=== PATIENT | male | born 2000 | race Caucasian/White ===

== ENCOUNTER 2025-04-27 21:19 | Emergency (ER) | payer BC, SELFPAY ==
[2025-04-27] VITALS (9 sets, daily range): BP systolic 103–139; BP diastolic 67–109; PULSE 68–84; RESP 18–28; TEMP 37.1; O2SAT 96–100; BMI 32.2
--- NOTE | 2025-04-27 21:53 | EX.ED.DYSGE1 ---
HPI History of Present Illness Chief Complaint: Palpitations Informant: patient Onset/Context/Timing Onset: Today Context: Sudden Onset Timing: Intermittent and Lasts (Approximately 1 hour) Quality: Racing Location: Chest Worsened by: Nothing Relieved by: Nothing Narrative Narrative: Patient presents with palpitations that began today. Patient states he felt his heart racing. Patient states this lasted for approximately 1 hour. Patient states that this occurred while he was at work. Patient states nothing makes it worse and nothing makes it better. Patient states he did break out into a mild sweat. Patient denies any pain in his chest. Patient denies any shortness of breath or cough. Patient denies any nausea or vomiting. Patient does admit to drinking some energy drinks occasionally. Patient also admits to occasional alcohol use and occasional marijuana use. PFSH PFS Medical History Marijuana use Medical History no medical history Home Medications ?Medication ?Instructions ?Recorded ?Last Taken ?Type NK 04/27/25 Unknown History Allergy/AdvReac Type Severity Reaction Status Date / Time No Known Allergies Allergy Verified 04/27/25 21:22 Social History (Updated 04/27/25 @ 22:[address] Carson Page, DO) alcohol intake: current alcohol intake frequency: a few times a month substance use type: marijuana ROS ROS ED Constitutional Constitutional ED: Reports sweats; Denies chills or fever(s) Eyes Eyes: Denies blurry vision or change in vision ENT ENT ED: Denies rhinorrhea or sore throat Cardiovascular Cardiovascular: Reports palpitations; Denies chest pain Respiratory/Chest Respiratory/Chest: Denies cough or dyspnea Gastrointestinal Gastrointestinal: Denies nausea or vomiting Genitourinary Genitourinary ED: Denies dysuria or hematuria Musculoskeletal Musculoskeletal: Denies back pain or neck pain Integumentary Denies abscess or rash Neurologic Neurologic: Denies headache(s) or weakness Allergic/Immunologic Allergic/Immunologic ED: Denies mouth swelling or urticaria EXAM Physical Exam Const Vital Signs: 04/27/25 21:20 04/27/25 21:42 04/27/25 21:54 Temperature 98.8 F Temperature Source Temporal Pulse Rate 84 Respiratory Rate 18 Respiratory Effort Normal Blood Pressure 139/89 H Blood Pressure Mean 105 Pulse Ox 100 Oxygen Delivery Method Room Air Room Air 04/27/25 21:55 04/27/25 22:00 04/27/25 22:03 Temperature Temperature Source Pulse Rate 75 81 Respiratory Rate 23 H 28 H Respiratory Effort Blood Pressure 128/109 H Blood Pressure Mean 116 Pulse Ox 98 97 Oxygen Delivery Method 04/27/25 22:15 04/27/25 22:30 04/27/25 22:45 Temperature Temperature Source Pulse Rate 68 71 81 Respiratory Rate 20 H 22 H 24 H Respiratory Effort Blood Pressure 132/67 H 132/88 H 103/85 H Blood Pressure Mean 86 102 93 Pulse Ox 97 99 98 Oxygen Delivery Method Room Air 04/27/25 23:00 04/27/25 23:15 Temperature Temperature Source Pulse Rate 71 74 Respiratory Rate 21 H 18 Respiratory Effort Blood Pressure 120/79 129/90 H Blood Pressure Mean 94 100 Pulse Ox 96 96 Oxygen Delivery Method Room Air Positive well nourished and well developed Constitutional Narrative: BMI is 32.3. General Appearance ED: well developed and NAD HEENT Reports moist mucous membranes Neck supple and no JVD Resp normal respiratory effort and clear to auscultation bilaterally Cardio regular rate and regular rhythm GI non-tender and non-distended Palpation: soft Extremity normal to inspection General Extremety ED: Negative for edema or tenderness General Extremity: Negative for edema Neuro oriented x3, CN's II-XII intact bilaterally and no sensory deficits noted Sensorium / Orientation: alert Motor Exam: strength 5/5 throughout Psych mental status grossly normal MDM MDM MDM Narrative Medical decision making narrative: Differential diagnosis includes cardiac dysrhythmia, cardiac ischemia, pneumonia, bronchitis, electrolyte abnormality, and anxiety. EKG will be obtained to assess for cardiac dysrhythmia and cardiac ischemia. Chest x-ray will be obtained to assess for pneumonia or bronchitis. CBC will be obtained to assess for leukocytosis and anemia. Basic metabolic profile will be obtained to assess for electrolyte abnormality and renal function. High-sensitivity troponin will be obtained to assess for cardiac ischemia. History & Record Review Additional record(s) reviewed:: No prior records Lab Data Attestation: I reviewed the patient's lab results. Lab results narrative: CBC was reviewed. There is a mild leukocytosis of 13.5. The remainder is within normal limits. Basic metabolic profile was reviewed and was in normal limits. High-sensitivity troponin was reviewed and was less than 6. 2-hour repeat high-sensitivity troponin was reviewed and normal at 15. Labs: Laboratory Results - last 24 hr 04/27/25 04/27/25 21:40 23:40 WBC 13.5 H RBC 4.84 Hgb 14.2 Hct 41.7 MCV 86.2 MCH 29.3 MCHC 34.1 RDW Std Deviation 39.2 RDW Coeff of Neelima 12.3 Plt Count 268 MPV 9.8 Immature Gran % (Auto) 0.400 Neut % (Auto) 77.2 H Lymph % (Auto) 16.1 L Bond % (Auto) 5.2 Eos % (Auto) 0.7 Baso % (Auto) 0.4 Absolute Neuts (auto) 10.5 H Absolute Lymphs (auto) 2.18 Nucleated RBC % 0 Sodium 140 Potassium 3.8 Chloride 103 Carbon Dioxide 24.6 Anion Gap 12 BUN 11 Creatinine 0.74 Estim Creat Clear Calc 178.64 Est GFR (MDRD) Non-Af 130 BUN/Creatinine Ratio 14.7 Glucose 96 Calcium 9.6 Troponin T High Sens < 6 Troponin T Hi Sens 2 Hr 15 Radiography Chest X-Ray - ED: 2 View, Read by ED Physician, Read by Radiologist and No Acute Disease Diagnostic Testing: Clinical Impression(s) from Imaging Studies Chest X-Ray 04/27/25 21:58 IMPRESSION: NO ACUTE FINDINGS. Reading Location: [address] [place] and lateral chest x-ray was obtained. There are 2 views. On my independent interpretation, lung schuster are clear. There is normal cardiac silhouette. Bony thorax is normal. There is no acute process noted. Radiologist also interpreted the x-ray and agrees. EKG Initial EKG: Attestation: I personally reviewed and interpreted this EKG as follows: Interpretation: Sinus Rhythm (74) and No Acute Injury Pattern Comments: EKG was obtained. On my independent interpretation, it showed a normal sinus rhythm with a rate of 74. NC interval, QRS interval, and QTc intervals were all normal. [place] was normal. There are no acute ST or T wave changes. Prior EKG tracings: not available for review Prior: No Prior Treatment and Re-Evaluation :: Patient was given aspirin. Patient was feeling better on reevaluation. Patient was advised of his findings. Symptoms symptoms started approximately 1 to 2 hours prior to arrival, mild we will repeat the 2-hour troponin. Since this is normal, patient could be discharged home safely. Patient was instructed to follow-up with his primary care physician in 5 to 7 days. Patient was instructed return if worse in any way. Patient understood and was agreeable with plan. All questions were answered. Discharge Plan Triage Chief Complaint: Palpitations ED Provider: Carson Page Dx/Rx/DC Orders Clinical Impression: Palpitations, Marijuana use Instructions: ED Heart Palpitations Prescriptions: No Action NK Primary Care Provider: Care Physician,No Primary Referrals: NOT,DEFINED [Non-Staff, None] - 5-7 Days Activity Restrictions/Additional Instructions: The palpitations could be a result of the energy drinks or [id number] medications. Please refrain from using these. Print Language: Spanish Disposition Disposition: Home, Self Care
--- NOTE | 2025-04-27 21:58 | RAD_ITS ---
PROCEDURE: CHEST PA AND LATERAL 04/27/2025 REASON FOR EXAM: CHEST PAIN TECHNIQUE: Procedure Code: RADCXR Modality: DX Procedure: CHEST PA AND LATERAL FINDINGS: The heart is normal in size. The lungs are clear. No acute osseous abnormalities. RAD/Chest PA and Lateral IMPRESSION: NO ACUTE FINDINGS. Reading Location: [id number]
[2025-04-27 22:13] LABS: Hematocrit 41.7 % (40-54); Hemoglobin 14.2 g/dL (13.0-16.5); Immature Granulocytes Count 0.050 X10^3/uL (0.0-0.0); Mean Corp Hgb Conc 34.1 g/dL (32-36); Mean Corpuscular Volume 86.2 fL (80-94); Mean Platelet Vol. 9.8 fl (6.2-12.0); NRBC Flagged by Analyzer 0 % (0-5); Platelet Count 268 K/mm3 (150-450); RBC Distribution Width CV 12.3 % (11.6-14.6); RBC Distribution Width SD 39.2 fl (35.1-43.9); Red Blood Count 4.84 M/mm3 (4.6-6.2); White Blood Count 13.5 K/mm3 (4.4-11.0)
[2025-04-27 22:33] LABS: Anion Gap 12 (5-15); BUN 11 mg/dL (4-19); BUN/Creat Ratio 14.7 RATIO (10-20); Calcium,Total 9.6 mg/dL (7.6-11.0); Carbon Dioxide 24.6 mmol/L (21.0-32.0); Chloride 103 mmol/L (98-108); Estimated Creatinine Clearance 178.64 ml/min (50-250); Glucose 96 mg/dL (70-99); Potassium 3.8 mmol/L (3.3-5.1); Troponin T High Sensitivity < 6 ng/L (<=22)
[2025-04-28 00:11] LABS: Troponin T High Sens 2 HR 15 ng/L (<=22)
[2025-04-28 00:22] VITALS: BP 139/72; PULSE 82; RESP 19; TEMP 36.7; O2SAT 98
== END 2025-04-28 00:22 | disposition home or self-care (01) ==
PROVIDERS: Emergency Provider Emergency Medicine; Visit Provider Emergency Medicine
DX: R00.2 Palpitations (principal); D72.829 Elevated white blood cell count, unspecified; F12.90 Cannabis use, unspecified, uncomplicated
CPT/HCPCS: 71046; 80048; 84484; 85025; 93005; 99284; A4216